=== PATIENT | female | born 1955 | race Caucasian/White ===

== ENCOUNTER 2019-12-23 19:00 | Observation (INO) ==
[2019-12-23] MEDS ORDERED: ASPIRIN 325 MG TABLET PO STA (19:43)
[2019-12-23 19:49] LABS: Basophils # 0.1 10*3/uL (0.0-0.2); Basophils % 0.8 % (0.0-0.8); Eosinophils # 0.3 10*3/uL (0.0-0.87); Eosinophils % 2.7 % (0.00-10.9); Hematocrit 39.5 VOL% (35.7-47.0); Immature Granulocytes Absolute 0.09 #; Lymphocytes # 2.3 10*3/uL (1.4-4.0); Lymphocytes % 25.5 % (21.3-54.2); Mean Corpuscular HGB Conc 35.4 GM/DL (32-36); Mean Corpuscular Volume 84.8 FL (87-102); Mean Platelet Volume 10.6 FL (9.6-12.0); Monocytes % 7.5 % (1.7-12.7); Neutrophils % 62.5 % (38.7-73.9); Platelet Count 298 T/CUMM (130-400); Red Blood Count 4.66 MC/CUMM (3.8-5.5); Red Cell Distribution Width 12.5 % (9.3-17.3); White Blood Count 9.2 T/CUMM (4-12)
[2019-12-23 19:57] LABS: PT Patient Result 10.3 SECS (9.8-11.9)
[2019-12-23 20:21] LABS: Albumin 4.1 G/DL (3.4-5.0); Bilirubin,Total 0.6 MG/DL (0.2-1.0); Calcium 9.3 MG/DL (8.5-10.1); Osmolality,Calculated 272.8 MOS/KG (273-304); Total Protein 7.6 G/DL (6.4-8.3)
[2019-12-23] MEDS ORDERED: MORPHINE 4 MG/1 ML VIAL IV PRN (20:44)
[2019-12-23] MEDS: NITROGLYCERIN SL 0.4 MG TABLET SL PRN ×2 (20:55→21:00)
[2019-12-23] MEDS ORDERED: hydrALAZINE 20 MG/1 ML VIAL IV STA (21:31)
[2019-12-24] MEDS: ACETAMINOPHEN 325 MG TABLET PO PRN ×3 (01:46→21:05)
[2019-12-24 02:06] LABS: Basophils # 0.1 10*3/uL (0.0-0.2); Basophils % 0.9 % (0.0-0.8); Eosinophils # 0.2 10*3/uL (0.0-0.87); Eosinophils % 2.7 % (0.00-10.9); Hemoglobin 13.3 GM/DL (12.0-16.0); Immature Granulocytes % 0.7 %; Immature Granulocytes Absolute 0.06 #; Lymphocytes # 2.6 10*3/uL (1.4-4.0); Lymphocytes % 28.6 % (21.3-54.2); Mean Corpuscular Volume 85.2 FL (87-102); Mean Platelet Volume 10.5 FL (9.6-12.0); Neutrophils % 58.1 % (38.7-73.9); Platelet Count 269 T/CUMM (130-400); Red Blood Count 4.46 MC/CUMM (3.8-5.5); Red Cell Distribution Width 12.4 % (9.3-17.3); White Blood Count 8.9 T/CUMM (4-12)
[2019-12-24 02:17] LABS: Albumin 3.8 G/DL (3.4-5.0); Bilirubin,Total 1.4 MG/DL (0.2-1.0); Calcium 9.1 MG/DL (8.5-10.1); Osmolality,Calculated 279.3 MOS/KG (273-304); Total Protein 7.4 G/DL (6.4-8.3)
[2019-12-24] MEDS: PANTOPRAZOLE 40 MG VIAL IV SCH (08:51)
[2019-12-24] MEDS ORDERED: LOSARTAN 25 MG TABLET PO SCH (09:00)
[2019-12-24] MEDS ORDERED: ERGOCALCIFEROL 50,000 UNIT CAPSULE PO SCH (09:00)
[2019-12-24] MEDS ORDERED: BISOPROLOL 5 MG TABLET PO SCH (09:00)
[2019-12-24] MEDS: VENLAFAXINE XR 75 MG CAPSULE PO SCH (09:15)
[2019-12-24] MEDS: ASPIRIN EC 81 MG TABLET PO SCH (09:16)
[2019-12-24] MEDS: hydroCHLOROthiazide 25 MG TABLET PO SCH (09:17)
[2019-12-24] MEDS: METOPROLOL TARTRATE 25 MG TABLET PO SCH ×2 (09:32→21:06)
[2019-12-24 09:40] LABS: Risk Ratio 3.81
[2019-12-24] MEDS: CYANOCOBALAMIN 2500 MCG SL SCH (10:16)
[2019-12-24] MEDS: ENOXAPARIN 150 MG/ML SYRINGE SUBCUT SCH ×2 (10:17→21:06)
[2019-12-24] MEDS: NITROGLYCERIN 2% OINT 1 INCH/GM PACK TOP SCH ×2 (12:18→17:09)
[2019-12-24] MEDS: METOCLOPRAMIDE 10 MG TABLET PO SCH ×3 (12:18→21:05)
[2019-12-24] MEDS ORDERED: SIMVASTATIN 40 MG TABLET PO SCH (21:00)
[2019-12-24] MEDS: ONDANSETRON 4 MG/2 ML VIAL IV PRN (22:30)
[2019-12-24] MEDS: cloNIDine 0.1 MG TABLET PO PRN (23:02)
[2019-12-25] MEDS: NITROGLYCERIN 2% OINT 1 INCH/GM PACK TOP SCH ×4 (00:12→17:07)
[2019-12-25] MEDS: PANTOPRAZOLE 40 MG VIAL IV SCH (08:45)
[2019-12-25] MEDS: ENOXAPARIN 150 MG/ML SYRINGE SUBCUT SCH ×2 (08:55→21:19)
[2019-12-25] MEDS: VENLAFAXINE XR 75 MG CAPSULE PO SCH (08:56)
[2019-12-25] MEDS: METOCLOPRAMIDE 10 MG TABLET PO SCH ×4 (08:56→21:19)
[2019-12-25] MEDS: ASPIRIN EC 81 MG TABLET PO SCH (08:56)
[2019-12-25] MEDS: hydroCHLOROthiazide 25 MG TABLET PO SCH (08:56)
[2019-12-25] MEDS: METOPROLOL TARTRATE 25 MG TABLET PO SCH ×2 (08:56→21:19)
[2019-12-25] MEDS: CYANOCOBALAMIN 2500 MCG SL SCH (09:06)
[2019-12-25] MEDS: LOSARTAN 25 MG TABLET PO SCH (09:16)
[2019-12-25] MEDS ORDERED: MAGNESIUM SULF RIDER 2 GM in PREMIX 1 EACH IV PRN (09:52)
[2019-12-25] MEDS ORDERED: POTASSIUM CHLORIDE RIDER 10 MEQ in PREMIX 1 EACH IV PRN (09:52)
[2019-12-25] MEDS: ROSUVASTATIN 20 MG TABLET PO SCH (21:19)
[2019-12-25] MEDS: ACETAMINOPHEN 325 MG TABLET PO PRN (23:01)
[2019-12-25] MEDS: cloNIDine 0.1 MG TABLET PO PRN (23:02)
[2019-12-26] MEDS: NITROGLYCERIN 2% OINT 1 INCH/GM PACK TOP SCH ×4 (00:40→17:53)
[2019-12-26 06:05] LABS: Basophils # 0.1 10*3/uL (0.0-0.2); Eosinophils # 0.2 10*3/uL (0.0-0.87); Eosinophils % 3.1 % (0.00-10.9); Hematocrit 39.3 VOL% (35.7-47.0); Hemoglobin 13.4 GM/DL (12.0-16.0); Immature Granulocytes % 1.2 %; Immature Granulocytes Absolute 0.09 #; Lymphocytes # 2.2 10*3/uL (1.4-4.0); Lymphocytes % 28.4 % (21.3-54.2); Mean Corpuscular HGB Conc 34.1 GM/DL (32-36); Mean Corpuscular Volume 86.8 FL (87-102); Monocytes % 8.5 % (1.7-12.7); Neutrophils % 57.8 % (38.7-73.9); Platelet Count 237 T/CUMM (130-400); Red Blood Count 4.53 MC/CUMM (3.8-5.5); Red Cell Distribution Width 12.3 % (9.3-17.3); White Blood Count 7.7 T/CUMM (4-12)
[2019-12-26 06:21] LABS: Calcium 9.7 MG/DL (8.5-10.1); Osmolality,Calculated 274.8 MOS/KG (273-304)
[2019-12-26] MEDS: ONDANSETRON 4 MG/2 ML VIAL IV PRN (06:23)
[2019-12-26 08:19] LABS: Eosinophils 3 % (0-10); Hypochromasia 1+; Lymphocytes 25 % (20-55); Microcytosis 1+; Platelet Estimate Adequate; Segmented Neutrophils 58 % (50-85); Total Cells Counted 100
[2019-12-26] MEDS ORDERED: ERGOCALCIFEROL 50,000 UNIT CAPSULE PO SCH (09:00)
[2019-12-26] MEDS: PANTOPRAZOLE 40 MG VIAL IV SCH (09:28)
[2019-12-26] MEDS: ASPIRIN EC 81 MG TABLET PO SCH (09:28)
[2019-12-26] MEDS: METOPROLOL TARTRATE 25 MG TABLET PO SCH ×2 (09:28→21:32)
[2019-12-26] MEDS: METOCLOPRAMIDE 10 MG TABLET PO SCH ×5 (09:28→21:32)
[2019-12-26] MEDS: LOSARTAN 25 MG TABLET PO SCH (09:38)
[2019-12-26] MEDS: CYANOCOBALAMIN 2500 MCG SL SCH (10:01)
[2019-12-26] MEDS: hydroCHLOROthiazide 25 MG TABLET PO SCH (10:02)
[2019-12-26] MEDS: VENLAFAXINE XR 75 MG CAPSULE PO SCH ×2 (10:02→17:52)
[2019-12-26] MEDS: POTASSIUM CHLORIDE 20 MEQ TABLET PO PRN ×2 (11:29→16:56)
[2019-12-26] MEDS ORDERED: LIDOCAINE 1% 20 ML VIAL ONE (12:56)
[2019-12-26] MEDS ORDERED: HEPARIN/NACL 0.9% 2 UNITS/ML 1,000 ML IV ONE (12:56)
[2019-12-26] MEDS ORDERED: fentaNYL 100 MCG/2 ML VIAL ONE (13:08)
[2019-12-26] MEDS ORDERED: MIDAZOLAM 2 MG/2 ML VIAL ONE ×2 (13:08→13:31)
[2019-12-26] MEDS ORDERED: VERAPAMIL 5 MG/2 ML VIAL ONE (13:12)
[2019-12-26] MEDS ORDERED: NITROGLYCERIN DRIP 50 MG/250 ML BOTTLE IV ONE (13:12)
[2019-12-26] MEDS ORDERED: HEPARIN 5,000 UNIT/1 ML VIAL ONE (13:22)
[2019-12-26] MEDS ORDERED: ONDANSETRON ODT 4 MG TABLET PO PRN (13:47)
[2019-12-26] MEDS ORDERED: SODIUM CHLORIDE 0.9% 1,000 ML IV SCH (14:00)
[2019-12-26] MEDS: ROSUVASTATIN 20 MG TABLET PO SCH (21:32)
[2019-12-27] MEDS: NITROGLYCERIN 2% OINT 1 INCH/GM PACK TOP SCH ×2 (00:30→06:10)
[2019-12-27] MEDS ORDERED: PANTOPRAZOLE 40 MG TABLET PO SCH (09:00)
[2019-12-27] MEDS: VENLAFAXINE XR 75 MG CAPSULE PO SCH (10:25)
[2019-12-27] MEDS: hydroCHLOROthiazide 25 MG TABLET PO SCH (10:25)
[2019-12-27] MEDS: LOSARTAN 25 MG TABLET PO SCH (10:25)
[2019-12-27] MEDS: METOPROLOL TARTRATE 25 MG TABLET PO SCH (10:25)
[2019-12-27] MEDS: ASPIRIN EC 81 MG TABLET PO SCH (10:25)
[2019-12-27] MEDS: METOCLOPRAMIDE 10 MG TABLET PO SCH (10:27)
[2019-12-27] MEDS: CYANOCOBALAMIN 2500 MCG SL SCH (10:32)
[2019-12-27 13:01] VITALS: BP 157/77
== END 2019-12-27 13:05 | disposition home or self-care (01) ==
LOC: N.EDINP 19:00 → N.ED 19:00 → N.TELEN 22:54
PROVIDERS: ADMIT Family Medicine; ATTEND Family Medicine
PROC: CLCCHCL (ICD-10-PCS; 2019-12-26 12:45)